=== PATIENT | male | born 1965 | race Caucasian/White ===

== ENCOUNTER 2016-08-18 17:28 | Emergency (ER) | payer SELFPAY ==
[2016-08-18] MEDS ORDERED: ASPIRIN 81 MG TABLET, CHEWABLE PO ONE (18:01)
--- NOTE | 2016-08-18 18:03 | ER Document Report ---
ED Medical Screen (RME) - General Stated Complaint: CHEST PAIN Mode of Arrival: Wheelchair Information source: Patient Notes: Patient reports chest pain off and on for the past 3 days. Patient reports diarrhea. Patient is status post cholecystectomy several weeks ago. Patient states that he did have a seizure earlier this afternoon. Patient points to epigastric area and right side of abdomen. hx: Pancreatitis, seizures I have greeted and performed a rapid initial assessment of this patient. A comprehensive ED assessment and evaluation of the patient, analysis of test results and completion of the medical decision making process will be conducted by additional ED providers. TRAVEL OUTSIDE OF THE [place] IN LAST 30 DAYS: No - Related Data Allergies/Adverse Reactions: No Known Allergies Allergy (Verified 08/18/16 17:59) Past Medical History - Immunizations Immunizations up to date: No Hx Diphtheria, Pertussis, Tetanus Vaccination: No Physical Exam - Vital signs Vitals: Temp Pulse Resp BP Pulse Ox 98.2 F 98 20 125/100 H 97 08/18/16 17:32 08/18/16 17:32 08/18/16 17:32 08/18/16 17:32 08/18/16 17:32 - Abdominal Tenderness: Tender - Epigastric Course - Vital Signs Vital signs: Temp Pulse Resp BP Pulse Ox 98.2 F 98 20 125/100 H 97 08/18/16 17:32 08/18/16 17:32 08/18/16 17:32 08/18/16 17:32 08/18/16 17:32
--- NOTE | 2016-08-18 18:04 | EKG REPORT ---
SEVERITY:- NORMAL ECG - SINUS RHYTHM : Confirmed by: Haylee Infante MD 18-Aug-2016 18:02:44
[2016-08-18 18:52] LABS: ABSOLUTE BASOPHILS # (AUTO) 0.1 10^3/uL (0.0-0.2); ABSOLUTE LYMPHOCYTES (AUTO) 2.1 10^3/uL (0.5-4.7); ABSOLUTE MONOCYTES (AUTO) 0.7 10^3/uL (0.1-1.4); ABSOLUTE NEUT (AUTO) 12.7 10^3/uL (1.7-8.2); BASOPHILS % (AUTO) 0.3 % (0-2); EOSINOPHILS % (AUTO) 0.3 % (0-6); HEMATOCRIT 37.7 % (37.9-51.0); HEMOGLOBIN 12.7 g/dL (13.5-17.0); HGB HCT DIFFERENCE 0.4; LYMPHOCYTES % (AUTO) 13.6 % (13-45); MEAN CORPUSCULAR HGB CONC 33.6 g/dL (32.0-36.0); MEAN CORPUSCULAR VOLUME 83 fl (80-97); MONOCYTES % (AUTO) 4.6 % (3-13); RED BLOOD COUNT 4.54 10^6/uL (4.35-5.55); RED CELL DISTRIBUTION WIDTH 14.8 % (11.5-14.0); SEGMENTED NEUTROPHILS % (AUTO) 81.2 % (42-78); WHITE BLOOD COUNT 15.6 10^3/uL (4.0-10.5)
[2016-08-18 19:17] LABS: ALANINE AMINOTRANSFERASE 79 U/L (21-72); ALBUMIN 4.4 g/dL (3.5-5.0); ALCOHOL < 10 mg/dL (NONE DETECTED); ALKALINE PHOSPHATASE 348 U/L (38-126); ANION GAP 15 (5-19); ASPARTATE AMINO TRANSFERASE 87 U/L (17-59); BILIRUBIN,TOTAL 0.9 mg/dL (0.2-1.3); BLOOD UREA NITROGEN 11 mg/dL (7-20); CALCIUM 9.5 mg/dL (8.4-10.2); CARBON DIOXIDE 17 mmol/L (22-30); CHLORIDE 93 mmol/L (98-107); CREATINE KINASE 679 U/L (55-170); CREATININE RESULT 0.66 mg/dL (0.52-1.25); GLUCOSE 115 mg/dL (75-110); LIPASE 93.2 U/L (23-300); MAGNESIUM 1.6 mg/dL (1.6-2.3); POTASSIUM 3.1 mmol/L (3.6-5.0); SODIUM 124.9 mmol/L (137-145); TOTAL PROTEIN 8.4 g/dL (6.3-8.2)
[2016-08-18 19:25] LABS: CREATINE KINASE MB 5.24 ng/mL (<4.55)
[2016-08-18 19:27] LABS: TROPONIN I < 0.012 ng/mL
[2016-08-18] MEDS ORDERED: NORMAL SALINE 1000 ML 1,000 ML IV ONE (21:48)
[2016-08-18] MEDS ORDERED: LORAZEPAM INJ 2 MG/1 ML VIAL IV ONE (21:48)
[2016-08-18] MEDS ORDERED: LEVETIRACETAM 1500 MG/NACL-ISO 100 ML IV ONE (22:14)
[2016-08-18] MEDS ORDERED: MAG HYDROX/AL HYDROX/SIMETH SUSP 30 ML UDCUP PO ONE (22:15)
[2016-08-18] MEDS ORDERED: METOCLOPRAMIDE HCL ORAL SOLN 10 MG/10 ML UDCUP PO ONE (22:15)
[2016-08-18] MEDS ORDERED: LIDOCAINE 2% VISCOUS SOLN 20 ML UDCUP PO ONE (22:15)
--- NOTE | 2016-08-18 22:19 | ER Document Report ---
ED General - General Chief Complaint: Chest Pain Stated Complaint: CHEST PAIN Mode of Arrival: Wheelchair Notes: Patient is a 50-year-old male with past medical history of chronic alcoholism, chronic pancreatitis, seizures, and hypertension. He presents after having a seizure in the lobby. His initial chief stated complaint was chest pain, he was probably brought back due to having witnessed tonic-clonic seizure. At time of assessment, patient is a very poor historian and is unable to tell me anything beyond that he is not having intermittent chest and abdominal pain ever since being discharged from [facility] 2 weeks ago. Nothing is new or different about that pain today. He does describe as a constant, stabbing, burning pain. Nothing improves or worsens that pain. States that he supposed to be on seizure medication but he does not know what medication it is. He is uncertain when his last seizure was 3 states that he thinks he's had multiple today. He has not seen a neurologist or his primary care doctor regarding these concerns. TRAVEL OUTSIDE OF THE [place] IN LAST 30 DAYS: No - Related Data Allergies/Adverse Reactions: No Known Allergies Allergy (Verified 08/18/16 17:59) Past Medical History - General Information source: Patient - Social History Smoking Status: Current Every Day Smoker Chew tobacco use (# tins/day): No Frequency of alcohol use: Heavy Drug Abuse: None Lives with: Parents Family History: Reviewed & Not Pertinent Patient has suicidal ideation: No Patient has homicidal ideation: No Renal/ Medical History: Denies: Hx Peritoneal Dialysis - Immunizations Immunizations up to date: No Hx Diphtheria, Pertussis, Tetanus Vaccination: No Review of Systems - Review of Systems Notes: Constitutional: Negative for fever. HENT: Negative for sore throat. Eyes: Negative for visual changes. Cardiovascular: Positive for chest pain. Respiratory: Negative for shortness of breath. Gastrointestinal: Positive for abdominal pain, negative for vomiting or diarrhea. Genitourinary: Negative for dysuria. Musculoskeletal: Negative for back pain. Skin: Negative for rash. Neurological: Negative for headaches, weakness or numbness. Positive for seizure 10 point ROS negative except as marked above and in HPI. Physical Exam - Vital signs Vitals: Temp Pulse Resp BP Pulse Ox 98.2 F 98 20 125/100 H 97 08/18/16 17:32 08/18/16 17:32 08/18/16 17:32 08/18/16 17:32 08/18/16 17:32 Interpretation: Normal Notes: PHYSICAL EXAMINATION: GENERAL: Appears somewhat confused, mildly ill in appearance. HEAD: Atraumatic, normocephalic. EYES: Pupils equal round and reactive to light, extraocular movements intact, sclera anicteric, conjunctiva are normal. ENT: nares patent, oropharynx clear without exudates. Dry mucous membranes. NECK: Normal range of motion, supple without lymphadenopathy LUNGS: Breath sounds clear to auscultation bilaterally and equal. No wheezes rales or rhonchi. HEART: Regular rate and rhythm without murmurs ABDOMEN: Soft, diffuse mild tenderness, normoactive bowel sounds. No guarding, no rebound. No masses appreciated. EXTREMITIES: Normal range of motion, no pitting or edema. No cyanosis. NEUROLOGICAL: Face symmetric. Tongue protrudes midline. Extraocular motions intact. Pupils are 2 mm and equally reactive. Delayed but clear speech. 5 out of 5 strength in both the distal and proximal upper and lower extremities bilaterally. Sensation is grossly intact throughout. Finger to nose testing normal. Pronator drift normal. PSYCH: Alert and oriented but seems calm somewhat confused, unable to provide any helpful history SKIN: Warm, Dry, normal turgor, no rashes or lesions noted. Course - Re-evaluation Re-evalutation: 08/18/16 22:15 I was called to see this patient after he had a witnessed seizure in the lobby. This terminated spontaneously and was immediately given Ativan on my assessment to prevent a recurrent seizure. Of note, patient is a very unhelpful historian although this may be effect from him being postictal after he had a seizure in the lobby. He is unable tell me what medications he normally takes, when he last took them, who prescribes them. Does some of that he was recently discharged from [facility]. I will obtain medical records from them so as to ascertain a better picture of this patient's baseline medical problems. He is a chronic alcoholic and has stopped drinking the last several days. He has had multiple seizures today including one in the emergency department lobby. I suspect these could be his primary epilepsy due to him being off AEDs or they could be alcohol draw seizures. His labs show mild LFT elevations, consistent with chronic alcohol use. He has already had a cholecystectomy performed apparently one month ago does not have any focal right upper quadrant pain to suggest retained stone. His bilirubin is not significantly elevated. Patient is also complaining of chest pain. States this been going on "for a long while" and nothing is new or different about today. He notes that EMS was contacted only because he had had a seizure and his mother was worried but he thought he bring this up while he was here. Low clinical suspicion for ACS given clinical history, exam, EKG without ST elevations or depressions, and negative initial troponin. HEART score less than or equal to 3. PE also seems unlikely given clinical history, absence of tachycardia or dyspnea. Patient is PERC criteria negative. CXR without evidence of pneumothorax or pneumonia. No widened mediastinum. Aortic dissection also seems unlikely given history, symmetric pulses, CXR, and vitals. 08/18/16 22:52 The parents have now arrived and provide a much more meaningful history. They state that he had multiple intra-abdominal abscesses after severe pancreatitis and was just discharged from the hospital at [facility] 2 weeks ago. He is probably supposed be taking phenytoin but based on a nondetectable level clearly is not. Will load with phenytoin at this time. Will also replace sodium with normal saline. He also required potassium replacement and this will be done orally with oral potassium and magnesium. Given his diffuse abdominal pain which she is unable to clarify whether or not this is different than when he was discharged from the hospital, will obtain a CT abdomen and pelvis with IV contrast to evaluate for reaccumulation of intra-abdominal abscesses particular given his alkaline phosphatase elevation as well as his leukocytosis. He is more oriented at this time. 08/19/16 00:42 CT the abdomen and pelvis unremarkable with the exception of mild ascites and findings of chronic pancreatitis secondary to patient's chronic alcoholism. Patient has been loaded with phenytoin without difficulty. I have strongly encouraged him to take his phenytoin as prescribed and follow-up with his doctors is recommended. He will need a recheck of his sodium level in the next several days and have also informed him of this. At this time will discharge with return precautions and follow-up recommendations. Verbal discharge instructions given a the bedside and opportunity for questions given. Medication warnings reviewed. Patient is in agreement with this plan and has verbalized understanding of return precautions and the need for primary care follow-up in the next 24-72 hours. - Vital Signs Vital signs: Temp Pulse Resp BP Pulse Ox 98.2 F 98 18 106/78 98 08/19/16 02:24 08/18/16 17:32 08/19/16 02:01 08/19/16 02:00 08/19/16 02:01 - Laboratory Result Diagrams: 08/18/16 18:30 08/18/16 18:30 Laboratory results interpreted by me: 08/18/16 08/18/16 08/18/16 18:30 18:30 18:30 WBC 15.6 H Hgb 12.7 L Hct 37.7 L RDW 14.8 H Seg Neutrophils % 81.2 H Absolute Neutrophils 12.7 H Sodium 124.9 L Potassium 3.1 L Chloride 93 L Carbon Dioxide 17 L Glucose 115 H AST 87 H ALT 79 H Alkaline Phosphatase 348 H Creatine Kinase 679 H CK-MB (CK-2) 5.24 H Total Protein 8.4 H Urine Blood Phenytoin 08/18/16 08/19/16 18:30 00:02 WBC Hgb Hct RDW Seg Neutrophils % Absolute Neutrophils Sodium Potassium Chloride Carbon Dioxide Glucose AST ALT Alkaline Phosphatase Creatine Kinase CK-MB (CK-2) Total Protein Urine Blood SMALL H Phenytoin < 3.0 L - Diagnostic Test Radiology reviewed: Image reviewed, Reports reviewed Radiology results interpreted by me: 08/18/16 22:19 Chest x-ray: No acute infiltrate or pneumothorax - EKG Interpretation by Me Additional EKG results interpreted by me: 08/18/16 22:19 Normal sinus rhythm. Rate 79. No ST elevations or depressions. QTC is 413 Critical Care Note - Critical Care Note Total time excluding time spent on procedures (mins): 35 Comments: Critical care time spent obtaining history from patient or surrogate, discussions with consultants, development of treatment plan with patient or surrogate, evaluation of patient's response to treatment, examination of patient , ordering and performing treatments and interventions, ordering and review of laboratory studies, re-evaluation of patient's condition, ordering and review of radiographic studies and review of old charts Discharge - Discharge Clinical Impression: Seizures, Hyponatremia, Diffuse abdominal pain, Hypokalemia Chronic pancreatitis Qualifiers: Pancreatitis type: alcohol induced Qualified Code(s): 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 It is very important that you do not engage in any activities that could result in severe injury should you have a seizure. Specifically, do not drive a vehicle, go into a body of water, take a bath, climb ladders, or operate any heavy machinery until you have been cleared by your neurologist. Please return to the ED immediately if you have multiple seizures close together, develop a severe headache, weakness, numbness, difficulty speaking, have a seizure in which you do not return to normal within 1 hour of the seizure, or have any other symptoms that are concerning to you. Take your phenytoin as directed. You also need to follow-up for recheck of your sodium and potassium level. Follow up with your primary doctor in the next several days.
[2016-08-18] MEDS ORDERED: PHENYTOIN SODIUM INJ/PF 250 MG/5 ML SDV IV ONE (22:51)
[2016-08-18] MEDS ORDERED: MAGNESIUM OXIDE 400 MG TABLET PO ONE (22:52)
[2016-08-18] MEDS ORDERED: POTASSIUM CHLORIDE 10 MEQ TABLET.SA PO ONE (22:52)
[2016-08-19 00:14] LABS: APPEARANCE,URINE CLEAR; BILIRUBIN,URINE NEGATIVE (NEGATIVE); GLUCOSE, URINE NEGATIVE (NEGATIVE); KETONES,URINE NEGATIVE (NEGATIVE); LEUKOCYTE ESTERASE,URINE NEGATIVE (NEGATIVE); NITRITE,URINE NEGATIVE (NEGATIVE); PROTEIN,URINE NEGATIVE (NEGATIVE); URINE SPECIFIC GRAVITY 1.002; UROBILINOGEN,URINE NEGATIVE mg/dL (<2.0)
[2016-08-19 02:03] VITALS: BP 106/78
== END 2016-08-19 02:25 | disposition home or self-care (01) ==
LOC: ER 17:28
DX: G40.909 Epilepsy, unspecified, not intractable, without status epilepticus (principal); Z91.14 Patient's other noncompliance with medication regimen; F10.20 Alcohol dependence, uncomplicated; K86.0 Alcohol-induced chronic pancreatitis; R07.9 Chest pain, unspecified; R10.84 Generalized abdominal pain; E87.6 Hypokalemia; E87.1 Hypo-osmolality and hyponatremia; R47.89 Other speech disturbances; F17.200 Nicotine dependence, unspecified, uncomplicated; I10 Essential (primary) hypertension; Z90.49 Acquired absence of other specified parts of digestive tract
CPT/HCPCS: 93005; 99291; 96361; 96374; 96375; 36415; 82553; 80307; 82550; 83690; 83735; 80185; 85025; 80053; 81001; 84484; 71020; 74177; 93010; J3490; J2060; J1165; J7030

== ENCOUNTER → 2016-09-08 | Outpatient (CLI) | payer OTHER ==
[2016-09-08 10:52] LABS: ABSOLUTE BASOPHILS # (AUTO) 0.1 10^3/uL (0.0-0.2); ABSOLUTE EOSINOPHILS # (AUTO) 0.3 10^3/uL (0.0-0.6); ABSOLUTE LYMPHOCYTES (AUTO) 2.2 10^3/uL (0.5-4.7); ABSOLUTE MONOCYTES (AUTO) 0.6 10^3/uL (0.1-1.4); ABSOLUTE NEUT (AUTO) 6.1 10^3/uL (1.7-8.2); EOSINOPHILS % (AUTO) 2.9 % (0-6); HEMOGLOBIN 13.7 g/dL (13.5-17.0); HGB HCT DIFFERENCE 0.1; MEAN CORPUSCULAR HEMOGLOBIN 28.5 pg (27.0-33.4); MEAN CORPUSCULAR HGB CONC 33.3 g/dL (32.0-36.0); MEAN CORPUSCULAR VOLUME 86 fl (80-97); MONOCYTES % (AUTO) 6.5 % (3-13); SEGMENTED NEUTROPHILS % (AUTO) 65.6 % (42-78); WHITE BLOOD COUNT 9.3 10^3/uL (4.0-10.5)
[2016-09-08 11:11] LABS: ALANINE AMINOTRANSFERASE 216 U/L (21-72); ALKALINE PHOSPHATASE 271 U/L (38-126); AMYLASE 126 U/L (30-110); ANION GAP 13 (5-19); ASPARTATE AMINO TRANSFERASE 132 U/L (17-59); BILIRUBIN,TOTAL 0.7 mg/dL (0.2-1.3); BLOOD UREA NITROGEN 17 mg/dL (7-20); CALCIUM 11.7 mg/dL (8.4-10.2); CARBON DIOXIDE 23 mmol/L (22-30); CHLORIDE 104 mmol/L (98-107); CHOLESTEROL 209.04 mg/dL (0-200); CREATININE RESULT 0.72 mg/dL (0.52-1.25); GLUCOSE 143 mg/dL (75-110); LIPASE 225.6 U/L (23-300); POTASSIUM 4.5 mmol/L (3.6-5.0); SODIUM 140.2 mmol/L (137-145); TOTAL PROTEIN 9.1 g/dL (6.3-8.2); TRIGLYCERIDES 104 mg/dL (<150)
[2016-09-08 11:22] LABS: DIRECT LDL 62 mg/dL (<100)
[2016-09-08 11:26] LABS: Direct HDL 117 mg/dL (>40)
== END ==
LOC: CCC 09:38
DX: E11.9 Type 2 diabetes mellitus without complications (principal)
CPT/HCPCS: 36415; 80053; 80061; 80185; 82150; 83036; 83690; 84443; 85025

== ENCOUNTER 2016-09-11 14:40 | Emergency (ER) | payer MEDICAID, OTHER ==
--- NOTE | 2016-09-11 15:44 | ER Document Report ---
ED Medical Screen (RME) - General Stated Complaint: BLOOD SUGAR PROBLEMS Time seen by provider: 15:39 Mode of Arrival: Ambulatory Information source: Patient Notes: 50-year-old male presents to ED for new onset diabetes a week ago today he says his blood sugar at home was over 500. With blurred vision. He states that he is on metformin at home. States his blurred vision is blurred vision urine frequency with extreme thirst. States that his sugar has been over 500 for the last few days. He had his infected gallbladder taken out about a month ago and still has abdominal pain. Some nausea but no vomiting. I have greeted and performed a rapid initial assessment of this patient. A comprehensive ED assessment and evaluation of the patient, analysis of test results and completion of medical decision making process will be conducted by an additional ED providers. TRAVEL OUTSIDE OF THE [place] IN LAST 30 DAYS: No - Related Data Allergies/Adverse Reactions: No Known Allergies Allergy (Verified 08/18/16 17:59) Past Medical History Renal/ Medical History: Denies: Hx Peritoneal Dialysis - Immunizations Immunizations up to date: No Hx Diphtheria, Pertussis, Tetanus Vaccination: No Physical Exam - Vital signs Vitals: Temp Pulse Resp BP Pulse Ox 99.1 F 90 16 125/86 H 96 09/11/16 15:38 09/11/16 15:38 09/11/16 15:38 09/11/16 15:38 09/11/16 15:38 Course - Vital Signs Vital signs: Temp Pulse Resp BP Pulse Ox 99.1 F 90 16 125/86 H 96 09/11/16 15:38 09/11/16 15:38 09/11/16 15:38 09/11/16 15:38 09/11/16 15:38
[2016-09-11] MEDS ORDERED: NORMAL SALINE 1000 ML 1,000 ML IV PRN (16:06)
[2016-09-11 16:16] LABS: ABSOLUTE BASOPHILS # (AUTO) 0.1 10^3/uL (0.0-0.2); ABSOLUTE EOSINOPHILS # (AUTO) 0.2 10^3/uL (0.0-0.6); ABSOLUTE MONOCYTES (AUTO) 0.6 10^3/uL (0.1-1.4); BASOPHILS % (AUTO) 0.7 % (0-2); EOSINOPHILS % (AUTO) 2.3 % (0-6); HEMATOCRIT 37.5 % (37.9-51.0); HEMOGLOBIN 12.5 g/dL (13.5-17.0); LYMPHOCYTES % (AUTO) 22.2 % (13-45); MEAN CORPUSCULAR HEMOGLOBIN 28.6 pg (27.0-33.4); MEAN CORPUSCULAR HGB CONC 33.3 g/dL (32.0-36.0); MEAN CORPUSCULAR VOLUME 86 fl (80-97); MONOCYTES % (AUTO) 6.8 % (3-13); RED BLOOD COUNT 4.36 10^6/uL (4.35-5.55); RED CELL DISTRIBUTION WIDTH 18.5 % (11.5-14.0); WHITE BLOOD COUNT 8.8 10^3/uL (4.0-10.5)
[2016-09-11 16:19] LABS: APPEARANCE,URINE CLEAR; BILIRUBIN,URINE NEGATIVE (NEGATIVE); GLUCOSE, URINE >=500 mg/dL (NEGATIVE); KETONES,URINE NEGATIVE (NEGATIVE); LEUKOCYTE ESTERASE,URINE NEGATIVE (NEGATIVE); NITRITE,URINE NEGATIVE (NEGATIVE); PROTEIN,URINE NEGATIVE (NEGATIVE); URINE SPECIFIC GRAVITY 1.012
[2016-09-11 16:34] LABS: ALANINE AMINOTRANSFERASE 332 U/L (21-72); ALBUMIN 4.5 g/dL (3.5-5.0); ALKALINE PHOSPHATASE 252 U/L (38-126); ANION GAP 13 (5-19); ASPARTATE AMINO TRANSFERASE 202 U/L (17-59); BILIRUBIN,DIRECT 0.4 mg/dL (0.0-0.4); BILIRUBIN,TOTAL 0.5 mg/dL (0.2-1.3); BLOOD UREA NITROGEN 24 mg/dL (7-20); CALCIUM 10.6 mg/dL (8.4-10.2); CARBON DIOXIDE 22 mmol/L (22-30); CHLORIDE 100 mmol/L (98-107); CREATININE RESULT 0.95 mg/dL (0.52-1.25); GLUCOSE 369 mg/dL (75-110); LIPASE 402.1 U/L (23-300); POTASSIUM 5.1 mmol/L (3.6-5.0); SODIUM 135.4 mmol/L (137-145); TOTAL PROTEIN 7.8 g/dL (6.3-8.2)
--- NOTE | 2016-09-11 21:26 | ER Document Report ---
ED General - General Chief Complaint: High Blood Sugar Stated Complaint: BLOOD SUGAR PROBLEMS Mode of Arrival: Ambulatory Notes: Patient is a 50-year-old male with past medical history of chronic pancreatitis , hepatitis both alcohol induced as well as a history of seizures who presents after being contacted by his primary care office and told to come to the emergency department secondary to hyperglycemia. Patient was recently diagnosed with type II diabetes likely secondary to his chronic pancreatitis and started on metformin. States that this has been gradually reducing his blood sugars. He notes that he intermittently has blurring of vision, polyuria and polydipsia but that these are not currently present. Nothing is noted to worsen his symptoms. He does not have a prior history of DKA or HHS. The patient has been sober since I last saw him. He denies any abdominal pain, vomiting, diarrhea, chest pain or any focal neurologic symptoms. TRAVEL OUTSIDE OF THE [place] IN LAST 30 DAYS: No - Related Data Allergies/Adverse Reactions: No Known Allergies Allergy (Verified 08/18/16 17:59) Past Medical History - General Information source: Patient - Social History Smoking Status: Former Smoker Frequency of alcohol use: None - Recovering alcoholic Drug Abuse: None Lives with: Parents Family History: Reviewed & Not Pertinent Endocrine Medical History: Reports: Hx Diabetes Mellitus Type 2 Renal/ Medical History: Denies: Hx Peritoneal Dialysis - Immunizations Immunizations up to date: No Hx Diphtheria, Pertussis, Tetanus Vaccination: No Review of Systems - Review of Systems Notes: Constitutional: Negative for fever. HENT: Negative for sore throat. Eyes: Negative for visual changes. Cardiovascular: Negative for chest pain. Respiratory: Negative for shortness of breath. Gastrointestinal: Negative for abdominal pain, vomiting or diarrhea. Genitourinary: Negative for dysuria. Musculoskeletal: Negative for back pain. Skin: Negative for rash. Neurological: Negative for headaches, weakness or numbness. 10 point ROS negative except as marked above and in HPI. Physical Exam - Vital signs Vitals: Temp Pulse Resp BP Pulse Ox 99.1 F 90 16 125/86 H 96 09/11/16 15:38 09/11/16 15:38 09/11/16 15:38 09/11/16 15:38 09/11/16 15:38 Interpretation: Normal Notes: PHYSICAL EXAMINATION: GENERAL: Well-appearing, well-nourished and in no acute distress. HEAD: Atraumatic, normocephalic. EYES: Pupils equal round and reactive to light, extraocular movements intact, sclera anicteric, conjunctiva are normal. ENT: nares patent, oropharynx clear without exudates. Moist mucous membranes. NECK: Normal range of motion, supple without lymphadenopathy LUNGS: Breath sounds clear to auscultation bilaterally and equal. No wheezes rales or rhonchi. HEART: Regular rate and rhythm without murmurs ABDOMEN: Soft, nontender, normoactive bowel sounds. No guarding, no rebound. No masses appreciated. EXTREMITIES: Normal range of motion, no pitting or edema. No cyanosis. NEUROLOGICAL: No focal neurological deficits. Moves all extremities spontaneously and on command. PSYCH: Normal mood, normal affect. SKIN: Warm, Dry, normal turgor, no rashes or lesions noted. Course - Re-evaluation Re-evalutation: 09/11/16 21:25 Presentation of asymptomatic hyperglycemia without evidence of diabetic ketoacidosis or hyperosmolar hyperglycemic state on laboratories. Labs are patient's baseline with findings consistent with chronic pancreatitis and hepatitis. Patient well appearing, in no acute distress, vitals within normal limits. No focal infectious symptoms to warrant infectious workup at this time. Tolerating oral intake without difficulty. Insulin provided and blood sugars have returned to a more acceptable level. I have stressed the importance of close followup, proper management of diabetes, and strict return precautions. Patient and family the bedside verbalized understanding of this conversation and return precautions. - Vital Signs Vital signs: Temp Pulse Resp BP Pulse Ox 97.4 F 70 18 133/93 H 98 09/11/16 22:49 09/11/16 22:49 09/11/16 22:49 09/11/16 22:49 09/11/16 22:49 - Laboratory Result Diagrams: 09/11/16 15:57 09/11/16 15:57 Laboratory results interpreted by me: 09/11/16 09/11/16 09/11/16 15:57 15:57 15:57 Hgb 12.5 L Hct 37.5 L RDW 18.5 H Sodium 135.4 L Potassium 5.1 H BUN 24 H Glucose 369 H POC Glucose Calcium 10.6 H AST 202 H ALT 332 H Alkaline Phosphatase 252 H Lipase 402.1 H Urine Glucose (UA) >=500 H Urine Urobilinogen 2.0 H 09/11/16 18:06 Hgb Hct RDW Sodium Potassium BUN Glucose POC Glucose 219 H Calcium AST ALT Alkaline Phosphatase Lipase Urine Glucose (UA) Urine Urobilinogen Discharge - Discharge Clinical Impression: Hyperglycemia Condition: Good Disposition: HOME, SELF-CARE Additional Instructions: You need to followup urgently with your primary care doctor as your blood sugars were dangerously high today. You did not have any evidence of a dangerous condition associated with these blood sugars at this time. However, it is very important that you get your blood sugars under control. Please take all of your medications exactly as directed. You should avoid foods that are high in carbohydrates and sugary foods. Losing weight will also help to better control your blood sugars. Please return to emergency department immediately if you develop weakness, persistent vomiting, confusion, or any other symptoms that are concerning to you. Referrals: [facility] [Primary Care Provider] - Follow up as needed
[2016-09-11 22:49] VITALS: BP 133/93
== END 2016-09-11 22:50 | disposition home or self-care (01) ==
LOC: ER 14:40
DX: E11.65 Type 2 diabetes mellitus with hyperglycemia (principal); Z79.84 Long term (current) use of oral hypoglycemic drugs; Z87.891 Personal history of nicotine dependence
CPT/HCPCS: 99285; 96360; 36415; 82962; 83690; 85025; 80053; 81001; J7030

== ENCOUNTER → 2016-09-15 | Outpatient (CLI) | payer OTHER ==
[2016-09-15 11:07] LABS: ALANINE AMINOTRANSFERASE 332 U/L (21-72); ALBUMIN 4.5 g/dL (3.5-5.0); ALKALINE PHOSPHATASE 265 U/L (38-126); ANION GAP 13 (5-19); ASPARTATE AMINO TRANSFERASE 155 U/L (17-59); BILIRUBIN,DIRECT 0.3 mg/dL (0.0-0.4); BILIRUBIN,TOTAL 0.6 mg/dL (0.2-1.3); BLOOD UREA NITROGEN 21 mg/dL (7-20); CALCIUM 10.7 mg/dL (8.4-10.2); CARBON DIOXIDE 22 mmol/L (22-30); CHLORIDE 100 mmol/L (98-107); CREATININE RESULT 1.05 mg/dL (0.52-1.25); GLUCOSE 365 mg/dL (75-110); POTASSIUM 4.8 mmol/L (3.6-5.0); SODIUM 135.3 mmol/L (137-145); TOTAL PROTEIN 7.9 g/dL (6.3-8.2)
== END ==
LOC: CCC 09:38
DX: E83.52 Hypercalcemia (principal); R79.89 Other specified abnormal findings of blood chemistry
CPT/HCPCS: 36415; 80053

== ENCOUNTER → 2016-09-26 | Outpatient (CLI) | payer OTHER ==
[2016-09-26 13:38] LABS: ALANINE AMINOTRANSFERASE 240 U/L (21-72); ALBUMIN 4.6 g/dL (3.5-5.0); ALKALINE PHOSPHATASE 266 U/L (38-126); ASPARTATE AMINO TRANSFERASE 117 U/L (17-59); BILIRUBIN,DIRECT 0.4 mg/dL (0.0-0.4); BILIRUBIN,TOTAL 0.5 mg/dL (0.2-1.3); TOTAL PROTEIN 8.2 g/dL (6.3-8.2)
[2016-09-27 06:38] LABS: HEPATITIS A AB TOTAL Negative (Negative)
== END ==
LOC: OD 12:08
DX: G40.909 Epilepsy, unspecified, not intractable, without status epilepticus (principal); R94.5 Abnormal results of liver function studies
CPT/HCPCS: 36415; 80076; 80185; 82977; 86317; 86708; 86709; 87340; 87522